=== PATIENT | female | born 1990 | race Caucasian/White ===

== ENCOUNTER 2019-05-01 17:52 | Emergency (ER) | payer MEDICAID, SELFPAY ==
[2019-05-01 17:53] VITALS: BP 134/69; PULSE 78; RESP 16; TEMP 36.6; O2SAT 99; BMI 25.0
--- NOTE | 2019-05-01 18:34 | ED.DCSUM_ITS ---
History of Present Illness Chief Complaint: Suicidal Detail of Chief Complaint: SI, overdose Informant: Patient Onset: Today 729 Context: Sudden Onset Timing: Continuous - sleepy Current Severity: Gone Maximum Severity: Severe Worsened by: Situational factors Associated Symptoms: Depressed, Decreased Interest, Guilt, Decreased Concentration, Hopelessness, Suicidal Thoughts Specific plan (suicidal thought): overdosed Narrative: Patient intentionally overdosed this morning on approximately 24 Benadryl tablets and anywhere from 15-20 tablets of an jrge-aat-xesmeup sleep aid. She does not know what that latter pill is. She states her goal was to kill herself. She became very upset when she woke up. A friend brought her in because she discovered all of this, as she was groggy and stumbling down the stairs, the friend states she wants help but she will not admit it. The patient has been homeless and her friend has been helping her. She takes no medications. 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 Physically, she feels fine just a little tired right now. Friend states she is not confused and seems otherwise at her baseline self physically, in addition to being oriented as usual. Recent Illness/Hospitalization: No Past Medical History - Allergies and Home Meds Allergies/Adverse Reactions: Allergies No Known Allergies Allergy (Verified 05/01/19 17:55) Primary Care Physician: Care Physician,No Primary [Primary Care Provider] - Past Medical History: None Lives: Homeless Smoking Status: Current every day smoker Drugs: - - Methamphetamine, last used 3 days ago Review of Systems General: Reports: Malaise. Denies: Chills, Fever, Sweats Eyes: Denies: Visual changes - bilaterally, Diplopia ENT: Denies: Rhinorrhea, Sore throat Cardiovascular: Denies: Chest pain, Palpitations Respiratory: Denies: Dyspnea, Cough, Dyspnea on exertion Gastrointestinal: Denies: Abdominal pain, Nausea, Vomiting, Diarrhea, Melena, Hematochezia Genitourinary: Denies: Dysuria, Hematuria, Frequency Musculoskeletal: Denies: Back pain, Extremity Pain Skin: Denies: Rash, Wounds Neurological: Denies: Headache, Weakness, Numbness Psych: Reports: Depression, Suicidal thoughts, Suicidal ideations Physical Exam Vital Signs/Narrative: Vital Signs Temp Pulse Resp BP Pulse Ox 05/01/19 17:53 97.8 F 78 16 134/69 H 99 Inital Vital Signs reviewed: Yes General: Well nourished, Well developed Head: Normocephalic, Atraumatic Eyes: Perrl, EOMI ENT: Moist mucous membranes, No rhinorrhea Neck: Supple, Nontender Cardiovascular: Regular rate, Regular rhythm, No murmurs. Negative for: Tachycardia Respiratory: No distress, CTA bilaterally, Chest nontender Abdomen: Soft, Nontender, Nondistended, Normal bowel sounds Back: Nontender, Normal Inspection Extremities: Nontender, No Edema Skin: Normal color, No rash, - - Warm, dry Neurological: Alert, Oriented x3, Cranial nerves II-XII grossly intact, Normal Strength, Normal Sensation Psych: Logical sequential goal directed thoughts, Good Insight, Poverty of Speech - But cooperative, Suicidal thoughts, Poor Judgement. Negative for: Homicidal thoughts, Hallucinations, Delusions Diagnostic/Tx/Re-eval Laboratory Results 05/01/19 05/01/19 05/01/19 18:43 18:43 18:43 WBC 7.1 RBC 5.47 H Hgb 14.6 Hct 46.1 MCV 84.3 MCH 26.7 L MCHC 31.7 L RDW Std Deviation 44.2 H RDW Coeff of Dayanara 14.5 Plt Count 261 MPV 10.5 Immature Gran % (Auto) 0.300 Neut % (Auto) 62.3 Lymph % (Auto) 21.4 [place] % (Auto) 6.6 Eos % (Auto) 8.7 H Baso % (Auto) 0.7 Absolute Neuts (auto) 4.4 Absolute Lymphs (auto) 1.52 Nucleated RBC % 0 Sodium 141 Potassium 4.0 Chloride 111 H Carbon Dioxide 24.0 Anion Gap 6 BUN 9 Creatinine 0.89 Estim Creat Clear Calc 89.88 Est GFR (MDRD) Af Amer 95 Est GFR (MDRD) Non-Af 79 BUN/Creatinine Ratio 10.1 Glucose 78 Calcium 8.9 Total Bilirubin 0.40 AST 25 ALT 30 Alkaline Phosphatase 70 Total Protein 7.6 Albumin 4.1 Globulin 3.5 Albumin/Globulin Ratio 1.2 Serum , Qual Salicylates 2.7 L Urine Opiates Screen Urine Methadone Screen Acetaminophen < 2.0 L Ur Barbiturates Screen Ur Phencyclidine Scrn Ur Amphetamines Screen U Methamphetamin-MDMA U Benzodiazepines Scrn Urine Cocaine Screen U Cannabinoids Screen Ur Drug Screen Comment Ethyl Alcohol < 3.0 05/01/19 05/01/19 18:43 18:43 WBC RBC Hgb Hct MCV MCH MCHC RDW Std Deviation RDW Coeff of Dayanara Plt Count MPV Immature Gran % (Auto) Neut % (Auto) Lymph % (Auto) [place] % (Auto) Eos % (Auto) Baso % (Auto) Absolute Neuts (auto) Absolute Lymphs (auto) Nucleated RBC % Sodium Potassium Chloride Carbon Dioxide Anion Gap BUN Creatinine Estim Creat Clear Calc Est GFR (MDRD) Af Amer Est GFR (MDRD) Non-Af BUN/Creatinine Ratio Glucose Calcium Total Bilirubin AST ALT Alkaline Phosphatase Total Protein Albumin Globulin Albumin/Globulin Ratio Serum , Qual NEGATIVE Salicylates Urine Opiates Screen NEGATIVE Urine Methadone Screen NEGATIVE Acetaminophen Ur Barbiturates Screen NEGATIVE Ur Phencyclidine Scrn NEGATIVE Ur Amphetamines Screen POSITIVE H U Methamphetamin-MDMA NEGATIVE U Benzodiazepines Scrn NEGATIVE Urine Cocaine Screen NEGATIVE U Cannabinoids Screen NEGATIVE Ur Drug Screen Comment Ethyl Alcohol Patient has been cooperative. Labs/work-up as above negative, including potential coingestants. She is now at least 12 hours postingestion. She is medically cleared. She does not have an anticholinergic toxidrome at this time and her vital signs are normal. Discussed with mental health for further evaluation and transfer to a psychiatric facility. ED Disposition - Plan for ED Patient: Disposition: Psychiatric Hospital or Unit Diagnosis: Major depression, Suicidal ideation, Intentional drug overdose, Suicide attempt
[2019-05-01 18:55] LABS: Absolute Lymphocyte Count 1.52 X10^3/uL (0.83-4.51); Absolute Neutrophil Count 4.4 X10^3/uL (2.0-7.7); Basophil# 0.05 X10^3/uL; Basophil% 0.7 % (0-1); Eosinophil# 0.62 X10^3/uL; Eosinophils% 8.7 % (0-5); Hematocrit 46.1 % (37-47); Hemoglobin 14.6 g/dL (12.0-15.0); Lymphocyte # 1.52 X10^3/ul (4.0); Lymphocyte % 21.4 % (19-41); Mean Corp Hgb Conc 31.7 g/dL (32-36); Mean Corpuscular Hgb 26.7 pg (27.0-32.0); Mean Corpuscular Volume 84.3 fL (81-99); Mean Platelet Vol. 10.5 fl (6.2-12.0); Monocyte# 0.47 X10^3/uL; Monocyte% 6.6 % (0-10); NRBC Flagged by Analyzer 0 % (0-5); Neutrophil # 4.43 X10^3/uL (2.7-7.7); Neutrophil % 62.3 % (47-70); Platelet Count 261 K/mm3 (150-450); RBC Distribution Width CV 14.5 % (11.6-14.6); RBC Distribution Width SD 44.2 fl (35.1-43.9); Red Blood Count 5.47 M/mm3 (4.2-5.4); White Blood Count 7.1 K/mm3 (4.4-11.0)
[2019-05-01 19:12] LABS: Internal QC Validated? YES +Cl - CLEAR BKGD; Pregnancy, Serum, hCG Quali. NEGATIVE Negative
[2019-05-01 19:15] LABS: ALB/GLOB Ratio 1.2 RATIO (0.9-2.4); AST(SGOT) 25 U/L (15-37); Alanine Aminotransfer ALT/SGPT 30 U/L (13-56); Albumin, Serum 4.1 g/dL (3.2-5.0); Alkaline Phosphatase 70 U/L (45-117); Anion Gap 6 (5-15); BUN 9 mg/dL (7-18); BUN/Creat Ratio 10.1 RATIO (10-20); Calcium,Total 8.9 mg/dL (8.5-10.1); Chloride 111 mmol/L (98-107); Creatinine, Serum 0.89 mg/dL (0.55-1.02); EST Glomerular Filtration Rate 79 mL/min (>60); Est Glom Filt Rate - Afr Amer 95 mL/min (>60); Estimated Creatinine Clearance 89.88 ml/min; Globulin 3.5 g/dL (2.2-4.2); Glucose 78 mg/dL (74-106); Protein, Total 7.6 g/dL (6.4-8.2); Sodium Level 141 mmol/L (136-145)
[2019-05-01 19:16] LABS: Amphetamine Urine VISTA POSITIVE (<1000 ng/mL); Barbiturate Urine VISTA NEGATIVE (< 200 ng/mL); Benzodiazepine Urine VISTA NEGATIVE (< 200 ng/mL); Cocaine Urine VISTA NEGATIVE (< 300 ng/mL); Ecstacy Urine VISTA NEGATIVE (< 500 ng/mL); Methadone Urine VISTA NEGATIVE (< 300 ng/mL); PCP Urine VISTA NEGATIVE (< 25 ng/mL); THC Urine VISTA NEGATIVE (< 50 ng/mL); Vista UDS pH Range 6
[2019-05-01 19:24] LABS: Acetaminophen (Tylenol) Level < 2.0 ug/mL (10.0-30.0); Alcohol, Blood (Medical)-Serum < 3.0 mg/dL; Salicylate 2.7 mg/dL (2.8-20.0)
[2019-05-01 19:32] VITALS: BP 109/85; PULSE 60; RESP 20; O2SAT 100
[2019-05-01 20:00] VITALS: BP 118/77; PULSE 59; RESP 19; O2SAT 100
[2019-05-01 21:00] VITALS: BP 114/71; PULSE 62; RESP 19; O2SAT 98
[2019-05-01 22:00] VITALS: BP 110/65; PULSE 54; RESP 16; O2SAT 100
--- NOTE | 2019-05-01 22:09 | ED.RN ---
CARINA WITH CRISIS RETURNED CALL I WILL BE IN WITHIN AN HOUR
[2019-05-01 23:15] VITALS: BP 118/66; PULSE 71; RESP 21; O2SAT 99
[2019-05-02] VITALS (8 sets, daily range): BP systolic 107–121; BP diastolic 59–68; PULSE 52–79; RESP 15–17; TEMP 36.6; O2SAT 96–98
== END 2019-05-02 08:06 ==
PROVIDERS: Emergency Provider Emergency Medicine
DX: T45.0X2A Poisoning by antiallergic and antiemetic drugs, intentional self-harm, initial encounter (principal); F32.9 Major depressive disorder, single episode, unspecified; Z59.0 Homelessness; F17.200 Nicotine dependence, unspecified, uncomplicated
CPT/HCPCS: 36415; 80053; 80307; 80320; 80329; 84703; 85025; 99284; G0480

== ENCOUNTER 2019-05-16 12:42 | Emergency (ER) | payer MEDICAID, SELFPAY ==
[2019-05-16 12:44] VITALS: BP 110/58; PULSE 84; RESP 16; TEMP 36.7; O2SAT 99; BMI 23.3
--- NOTE | 2019-05-16 13:46 | EKG12_ITS ---
Test Reason : CP Blood Pressure : / mmHG Vent. Rate : 082 BPM Atrial Rate : 082 BPM P-R Int : 116 ms QRS Dur : 088 ms QT Int : 380 ms P-R-T Axes : 058 060 044 degrees QTc Int : 443 ms Normal sinus rhythm Normal ECG Confirmed by ИВАН MANCUSO, BARB ([id number]), makeup editor HILARIA PRINCE ([id number]) on 05/18/2019 1:02:40 PM Referred By: LORI Confirmed By:BARB OATES MD
--- NOTE | 2019-05-16 13:50 | RAD_ITS ---
STUDY: X-RAY CHEST REASON FOR EXAM: Female, 28 years old. 2 week history of cough and cold-like symptoms. TECHNIQUE: Single AP portable view of the chest. COMPARISON: None. FINDINGS: Patchy bibasilar infiltrates worse on the left side. There is no demonstrated pleural abnormality. Normal size heart. Prominence of the left hilum. Normal visualized pulmonary arteries. Normal visualized aortic arch and descending thoracic aorta. Normal visualized thoracic spine. Normal visualized ribs, clavicles, and shoulders. There is no demonstrated abnormality of the visualized soft tissue structures of the upper abdomen. RAD/Chest 1 View (Portable) IMPRESSION: Patchy bibasilar infiltrates worse on the left side. Prominence of the left hilum. Radiographic follow-up is recommended. Electronically Signed: Paul Singleton, at 14:01 EST , Service support ,
[2019-05-16] MEDS: 0.9% Normal Saline 1,000 ML 1000 ML IV (14:26)
[2019-05-16] MEDS: Ketorolac 30 MG/ML Syringe IV (14:26)
[2019-05-16 14:29] LABS: Absolute Lymphocyte Count 1.28 X10^3/uL (0.83-4.51); Absolute Neutrophil Count 4.3 X10^3/uL (2.0-7.7); Basophil# 0.02 X10^3/uL; Basophil% 0.3 % (0-1); Eosinophil# 0.55 X10^3/uL; Eosinophils% 8.3 % (0-5); Hematocrit 32.4 % (37-47); Hemoglobin 10.8 g/dL (12.0-15.0); Lymphocyte # 1.28 X10^3/ul (4.0); Lymphocyte % 19.4 % (19-41); Mean Corp Hgb Conc 33.3 g/dL (32-36); Mean Corpuscular Volume 83.9 fL (81-99); Mean Platelet Vol. 9.1 fl (6.2-12.0); Monocyte# 0.48 X10^3/uL; Monocyte% 7.3 % (0-10); NRBC Flagged by Analyzer 0 % (0-5); Neutrophil # 4.25 X10^3/uL (2.7-7.7); Neutrophil % 64.4 % (47-70); Platelet Count 308 K/mm3 (150-450); RBC Distribution Width CV 14.9 % (11.6-14.6); RBC Distribution Width SD 43.3 fl (35.1-43.9); Red Blood Count 3.86 M/mm3 (4.2-5.4); White Blood Count 6.6 K/mm3 (4.4-11.0)
[2019-05-16 14:46] LABS: Anion Gap 7 (5-15); BUN 8 mg/dL (7-18); BUN/Creat Ratio 9.7 RATIO (10-20); Calcium,Total 8.6 mg/dL (8.5-10.1); Chloride 109 mmol/L (98-107); Creatinine, Serum 0.83 mg/dL (0.55-1.02); EST Glomerular Filtration Rate 86 mL/min (>60); Est Glom Filt Rate - Afr Amer 104 mL/min (>60); Estimated Creatinine Clearance 96.38 ml/min; Glucose 96 mg/dL (74-106); Potassium 3.5 mmol/L (3.5-5.1); Sodium Level 143 mmol/L (136-145)
[2019-05-16 14:54] LABS: Internal QC Validated? YES +Cl - CLEAR BKGD; Pregnancy, Serum, hCG Quali. NEGATIVE Negative
[2019-05-16 14:59] LABS: D-Dimer Quantitative (DVT/PE) 0.78 FEU/ug/m (0.27-0.49)
--- NOTE | 2019-05-16 15:01 | ED.RN ---
ddimer 0.[address] called from the lab. dr leon aware
--- NOTE | 2019-05-16 15:13 | CT_ITS ---
STUDY: CTA CHEST REASON FOR EXAM: Female, 28 years old. Elevated d-dimer. Cough and cold-like symptoms. RADIATION DOSAGE (If Supplied By Facility): CTDIvol = ( 10.09 ) mGy, DLP = ( 282.71 ) mGycm TECHNIQUE: The examination was performed with the intravenous administration of IV Isovue 370 75mL. Post-processing of the angiographic images was performed, with multiplanar reformation and 3D reconstruction. Individualized dose optimization techniques were used for this CT. COMPARISON: Comparison is made with prior chest radiograph done earlier today. FINDINGS: Normal enhancement of the main pulmonary artery and right and left pulmonary arteries. Normal enhancement of the bilateral peripheral pulmonary arteries. There is no demonstrated pulmonary embolism. Normal thoracic aorta and visualized great vessels. There is no demonstrated aortic dissection. Normal heart and pericardium. Normal mediastinum. Mildly enlarged bilateral hilar lymph nodes. Normal visualized trachea and bronchi. The lungs are well expanded. Patchy bibasilar infiltrates worse on the left side. Normal pleura. Normal chest wall structures. Normal osseous structures. Normal visualized upper abdomen. CT/CTA Chest W/WO Contrast IMPRESSION: Bilateral patchy basilar infiltrates worse on the left side. Mildly enlarged bilateral hilar lymph nodes. Electronically Signed: Paul Singleton, at 15:39 EST , Service support ,
--- NOTE | 2019-05-16 16:47 | ED.DEP ---
ED Disposition - Plan for ED Patient: Instructions: PNEUMONIA (Adult) Prescriptions: Doxycycline 100 mg PO BID #20 capsule Naproxen [Naprosyn] 500 mg PO BID PRN #20 tablet Referrals: Ozzy Ortiz DO [NON CLINICAL AFFILIATE] -
--- NOTE | 2019-05-16 16:56 | ED.VISSUMM ---
- ER Visit Summary Date of Service: 05/16/19 Chief Complaint: Cough History of Present Illness: The patient is a 28 F presenting with cough x2 weeks. She states that this has been mostly a dry cough occasionally productive of sputum. She has had subjective fever at home. She complains of rhinorrhea. She has chest pain when she coughs and takes deep breaths. Denies sick contacts. She has tried Robitussin at home. Denies PE/DVT risk factors. Denies other complaints. She is a smoker. Physical Examination: Vitals are stable. Patient is afebrile. Pulse ox 99% on room air. Alert no acute distress. HEENT exam is unremarkable. Neck is supple. Lungs are mild rhonchi bases bilaterally. Chest wall tenderness to palpation diffusely with no crepitus Heart is regular rate and rhythm. Abdomen is soft nontender nondistended. No guarding or rebound Extremities are unremarkable. Skin is warm and dry. No focal neurologic deficit. Remainder of exam is unremarkable. Emergency Department Course and Treatment: Chest x-ray shows patchy bilateral infiltrates. EKG is sinus rate of 82 with no acute ischemic changes. CBC normal except hemoglobin 10.8. Chemistries unremarkable. Troponin is negative. D-dimer elevated 0.78. hCG negative. Due to elevated d-dimer, CTA chest was obtained and shows bilateral patchy basilar infiltrates worse on the left side. Mildly enlarged bilateral hilar lymph nodes. Patient was given IV fluids, Toradol. She was given doxycycline. On reevaluation she is resting comfortably. Her oxygen sat is 94% on room air with ambulation. She will follow-up with Dr. Ortiz on-call for no doctor. She was given prescription for doxycycline and Naprosyn. Advised return to ED for worsening complaints. Disposition: Discharge home Impression: Pneumonia This note was generated with [employer] dictation software. It may contain incorrect words, spelling, and punctuation that were not noted in review of the chart prior to signing ED Disposition - Plan for ED Patient: Instructions: PNEUMONIA (Adult) Prescriptions: Doxycycline 100 mg PO BID #20 cap Transmission Status: Received by [facility] Naproxen [Naprosyn] 500 mg PO BID PRN #20 tab Transmission Status: Received by [facility] Referrals: Ozzy Ortiz DO [NON CLINICAL AFFILIATE] -
[2019-05-16 17:11] VITALS: BP 111/77; PULSE 83; RESP 12; O2SAT 94
== END 2019-05-16 17:12 | disposition home or self-care (01) ==
PROVIDERS: Emergency Provider Emergency Medicine
DX: J18.9 Pneumonia, unspecified organism (principal); Z72.0 Tobacco use
CPT/HCPCS: 71045; 71275; 80048; 84484; 84703; 85025; 85379; 87804; 93005; 96361; 96374; 99283; J7030; Q9967

== ENCOUNTER 2019-05-25 08:38 | Emergency (ER) | payer MEDICAID, SELFPAY ==
[2019-05-25 08:39] VITALS: BP 127/75; PULSE 85; RESP 17; TEMP 36.6; O2SAT 99; BMI 24.2
--- NOTE | 2019-05-25 08:51 | EKG12_ITS ---
Test Reason : SOB Blood Pressure : / mmHG Vent. Rate : 066 BPM Atrial Rate : 066 BPM P-R Int : 130 ms QRS Dur : 092 ms QT Int : 412 ms P-R-T Axes : 068 059 059 degrees QTc Int : 431 ms Normal sinus rhythm Normal ECG Confirmed by ROSALEE MANCUSO, RADHA ([id number]), telegraph editor HILARIA PRINCE ([id number]) on 06/01/2019 11:29:28 AM Referred By: ANASTACIA Confirmed By:LIZBETH TURK MD
--- NOTE | 2019-05-25 08:51 | RAD_ITS ---
STUDY: X-RAY CHEST REASON FOR EXAM: Female, 29 years old. Cough and shortness of breath. Right-sided rib pain. TECHNIQUE: Single AP portable view of the chest. COMPARISON: Comparison is made with prior examination dated May 16, 2019. FINDINGS: Residual patchy infiltrate in the left lower lobe. Mild increased markings at right lung base although there has been improvement as compared to prior study. Blunting of the left costophrenic angle. Normal size heart. Normal mediastinum and isabella. Normal visualized pulmonary arteries. Normal visualized aortic arch and descending thoracic aorta. Normal visualized thoracic spine. Normal visualized ribs, clavicles, and shoulders. There is no demonstrated abnormality of the visualized soft tissue structures of the upper abdomen. RAD/Chest 1 View (Portable) IMPRESSION: Residual bibasilar infiltrates left greater than right although there has been improvement as compared to prior study. Blunting of the left costophrenic angle. Electronically Signed: Paul Singleton, at 9:20 EST , Service support ,
--- NOTE | 2019-05-25 08:54 | ED.DCSUM_ITS ---
History of Present Illness Chief Complaint: Shortness of Breath Informant: Patient Onset: Days Current Severity: Mild Narrative: Complains of recent pneumonia increasing right-sided chest pain cough, lasted for antibiotics, Was seen in the emergency department with URI coughing type symptoms diagnosed with pneumonia started on antibiotics indicates she improved over the last 3 days she noticed increasing coughing increasing right-sided chest discomfort she presents for evaluation, declines fever no abdominal pain no diarrhea normal bowel bladder habits she does smoke she has no cardiopulmonary history no history UT PE DVT or pneumonia Past Medical History - Allergies and Home Meds Allergies/Adverse Reactions: Allergies No Known Allergies Allergy (Verified 05/25/19 08:39) Primary Care Physician: Care Physician,No Primary [Primary Care Provider] - Past Medical History: None Smoking Status: Current every day smoker Review of Systems General: Denies: Chills, Fever, Sweats Eyes: Denies: Visual changes - bilaterally, Diplopia ENT: Denies: Rhinorrhea, Sore throat Cardiovascular: Reports: Chest pain. Denies: Palpitations Respiratory: Reports: Cough. Denies: Dyspnea, Dyspnea on exertion Gastrointestinal: Denies: Abdominal pain, Nausea, Vomiting, Diarrhea, Melena, Hematochezia Genitourinary: Denies: Dysuria, Hematuria, Frequency Musculoskeletal: Denies: Back pain, Extremity Pain Skin: Denies: Rash, Wounds Neurological: Denies: Headache, Weakness, Numbness Physical Exam Vital Signs/Narrative: Vital Signs Temp Pulse Resp BP Pulse Ox 05/25/19 08:39 97.9 F 85 17 127/75 H 99 General: Well nourished, Well developed, No Acute Distress, - - Points to her right lower chest as area of pain worse when she moves or coughs Head: Normocephalic, Atraumatic Eyes: Perrl, EOMI ENT: Moist mucous membranes, No rhinorrhea Neck: Supple, Nontender Cardiovascular: Regular rate, Regular rhythm, No murmurs Respiratory: No distress, CTA bilaterally, Chest nontender Abdomen: Soft, Nontender, Nondistended, Normal bowel sounds Back: Nontender, Normal Inspection Extremities: Nontender, No edema Skin: Normal color, No rash Neurological: Alert, Oriented x3, Cranial nerves II-XII grossly intact, Normal Strength, Normal Sensation Psychological: Normal affect, Normal Mood Diagnostic/Tx/Re-eval - Medical Decision Making Her vitals are within normal range her pulse ox is within normal range, she has a dry cough here, given all of the above screening labs x-ray pain management Patient did have a CTA last visit that showed bibasilar infiltrates left more than right no PE no other abnormalities, the chest x-ray today shows improvement of these infiltrates again more on the left than the right, her white count labs are unremarkable she is feeling better after therapy, she has 1 more day left on the doxycycline prescription I explained to her the etiology of her pain remains unclear just could certainly be related to persistent residual pneumonia small effusion etc. there is no indication to redo a CTA given the risk of radiation contrast etc. she agrees She is not at risk for any specific type of pneumonia or pulmonary condition Spoke with Dr. Flores of pulmonary, as the patient has no follow-up physicians discussed the case with him he recommended switching her to Levaquin and he would be happy to try to work her in to be seen, reevaluation with patient she indicates she is feeling much better discussed all of the above with her she is comfortable with discharge home, she was given first dose of Levaquin here, 1 dose of Solu-Medrol IV, she will be started on Proventil inhaler Naprosyn for pain and return for change in symptoms and follow-up either with Dr. Ortiz or with Dr. Flores, she is understands the concept of pneumonia can be life- threatening and will return if symptoms change or intensified but again she feels much better wants to go home Home stable Impression, final , pneumonia ED Disposition - Plan for ED Patient: Diagnosis: pnuemonia Instructions: PNEUMONIA (Adult) Prescriptions: Levofloxacin [Levaquin] 750 mg PO DAILY #7 tab Prescription Printed Guaifenesin [Mucinex] 600 mg PO BID #20 tab.er.12h Prescription Printed Albuterol Inhaler [Ventolin Hfa] 1 - 2 puff INHALATION Q4H PRN PRN #1 inhaler PRN Reason: Wheezing Prescription Printed Referrals: Care Physician,No Primary [Primary Care Provider] - Jasper Flores MD [STAFF PHYSICIAN] - Ozzy Ortiz DO [NON CLINICAL AFFILIATE] -
[2019-05-25 09:17] LABS: Absolute Lymphocyte Count 1.78 X10^3/uL (0.83-4.51); Absolute Neutrophil Count 4.6 X10^3/uL (2.0-7.7); Basophil# 0.04 X10^3/uL; Basophil% 0.5 % (0-1); Eosinophil# 0.76 X10^3/uL; Eosinophils% 9.9 % (0-5); Hematocrit 35.4 % (37-47); Hemoglobin 11.6 g/dL (12.0-15.0); Lymphocyte # 1.78 X10^3/ul (4.0); Lymphocyte % 23.2 % (19-41); Mean Corp Hgb Conc 32.8 g/dL (32-36); Mean Corpuscular Volume 82.3 fL (81-99); Mean Platelet Vol. 8.9 fl (6.2-12.0); Monocyte# 0.45 X10^3/uL; Monocyte% 5.9 % (0-10); NRBC Flagged by Analyzer 0 % (0-5); Neutrophil % 60.1 % (47-70); Platelet Count 429 K/mm3 (150-450); RBC Distribution Width CV 15.5 % (11.6-14.6); RBC Distribution Width SD 44.3 fl (35.1-43.9); White Blood Count 7.7 K/mm3 (4.4-11.0)
[2019-05-25] MEDS: Ipratropium/Albuterol Sulfate 3 ML AMPUL.NEB INHALATION ×2 (09:19→11:51)
[2019-05-25 09:20] VITALS: PULSE 101; RESP 21; O2SAT 99
[2019-05-25 09:27] VITALS: BP 113/60; PULSE 76; PULSE 81; RESP 18; RESP 21; TEMP 36.6; O2SAT 97
[2019-05-25] MEDS: Ketorolac 30 MG/ML Syringe IV (09:30)
[2019-05-25] MEDS: Ondansetron 4 MG/2 ML Vial IV (09:31)
[2019-05-25] MEDS: Morphine 4 MG/ML Syringe IV (09:31)
[2019-05-25 09:35] LABS: Internal QC Validated? YES +Cl - CLEAR BKGD; Pregnancy, Serum, hCG Quali. NEGATIVE Negative
[2019-05-25] MEDS: 0.9% Normal Saline 1,000 ML 150 ML IV (09:38)
[2019-05-25 09:41] LABS: Anion Gap 6 (5-15); BUN 6 mg/dL (7-18); BUN/Creat Ratio 7.5 RATIO (10-20); Chloride 110 mmol/L (98-107); EST Glomerular Filtration Rate 89 mL/min (>60); Est Glom Filt Rate - Afr Amer 107 mL/min (>60); Estimated Creatinine Clearance 99.08 ml/min; Glucose 80 mg/dL (74-106); Potassium 3.8 mmol/L (3.5-5.1); Sodium Level 143 mmol/L (136-145)
[2019-05-25] MEDS: MethylPREDNISolone 125 MG/2 ML Vial IV (10:43)
[2019-05-25 11:52] VITALS: PULSE 96; RESP 26; O2SAT 96
[2019-05-25] MEDS: levoFLOXacin 750 MG Tablet PO (12:09)
[2019-05-25 12:13] VITALS: BP 107/65; PULSE 97; RESP 18; O2SAT 96
== END 2019-05-25 12:14 | disposition home or self-care (01) ==
LOC: ED 09:21
PROVIDERS: Emergency Provider Emergency Medicine
DX: J18.9 Pneumonia, unspecified organism (principal); F17.200 Nicotine dependence, unspecified, uncomplicated
CPT/HCPCS: 71045; 80048; 84484; 84703; 85025; 93005; 94640; 96361; 96374; 96375; 99251; 99285; J7030; A4216; G0463; J2405

== ENCOUNTER 2019-06-11 10:30 | Emergency (ER) | payer MEDICAID, SELFPAY ==
[2019-06-11 10:31] VITALS: BP 112/65; PULSE 81; RESP 18; TEMP 36.6; O2SAT 100; BMI 21.9
--- NOTE | 2019-06-11 10:46 | RAD_ITS ---
STUDY: X-RAY - UNILATERAL RIBS ( RIGHT ) WITH CHEST REASON FOR EXAM: Female, 29 years old. patient had episodes of coughing last week and felt a and quot;pop and quot; from anterior right side behind breast TECHNIQUE - RIBS: 4 view(s) of the ribs. TECHNIQUE - CHEST: Single PA view of the chest. COMPARISON: Chest x-ray dated May 25, 2019 FINDINGS - RIBS: Normal visualized ribs without a demonstrated fracture. No pneumothorax or pleural effusion. FINDINGS - CHEST: The lungs are clear and expanded. There is no demonstrated pleural abnormality. Normal size heart. Normal mediastinum and isabella. Normal visualized pulmonary arteries. Normal visualized aortic arch and descending thoracic aorta. Normal visualized thoracic spine. Normal visualized ribs, clavicles, and shoulders. There is no demonstrated abnormality of the visualized soft tissue structures of the upper abdomen. RAD/Ribs Uni Min 3V w/PA Chest IMPRESSION: RIBS: Normal x-ray examination of the ribs. CHEST: Normal x-ray examination of the chest. Electronically Signed: Braulio Aguirre MD at 12:10 EST , Service support ,
--- NOTE | 2019-06-11 11:06 | ED.VIS.GEN ---
History of Present Illness Chief Complaint: Chest Other Informant: Patient Onset: Weeks Context: Sudden Onset Timing: Continuous Quality: Pain Location: Right rib 6, 7 8 anterior axillary line to posterior axillary line Current Severity: Mild Maximum Severity: Severe Worsened by: Movement and breathing Relieved by: Nothing Associated Symptoms: Clicking with deep breathing Narrative: Patient has been seen twice this month. She had a chest x-ray and CAT scan first visit which revealed by lateral lower lobe pneumonia without evidence of rib fracture. Chest x-ray obtained during the second visit revealed improvement of her pneumonia. There was no evidence of pneumothorax or fractured ribs. She denies fever, chills night sweats. She denies rhinorrhea, postnasal drainage or congestion. She does report nonproductive cough. She denies trauma. She denies GI symptoms. She denies leg pain, swelling discoloration. Prior similar symptoms: Yes Recent Illness/Hospitalization: Yes - Past Medical History (1) Pneumonia of both lower lobes Status: Acute Past Medical History - Allergies and Home Meds Allergies/Adverse Reactions: Allergies No Known Allergies Allergy (Verified 06/11/19 10:32) Primary Care Physician: Care Physician,No Primary [Primary Care Provider] - Prior records reviewed: Yes - Bilateral lower lobe pneumonia Surgical History: noncontributory Lives: Spouse/ Significant Other Smoking Status: Current every day smoker Alcohol: Rare Drugs: None Review of Systems General: Denies: Chills, Fever, Sweats ENT: Denies: Bilateral ear pain, Rhinorrhea, Sore throat Cardiovascular: Reports: Chest pain. Denies: Palpitations, Heart racing Respiratory: Reports: Cough. Denies: Dyspnea, Sputum, Dyspnea on exertion, Orthopnea, Paroxysmal nocturnal dyspnea Gastrointestinal: Denies: Abdominal pain, Nausea, Vomiting, Diarrhea, Melena, Hematochezia Musculoskeletal: Denies: Myalgias, Arthralgias, Neck pain, Back pain, Swelling, Extremity Pain, -, - Skin: Denies: Rash, Wounds Hematologic: Denies: Easy bruising, Easy bleeding Allergy: Denies: Uticaria, Swelling of the mouth, Swelling of the tongue Physical Exam Vital Signs/Narrative: Vital Signs Temp Pulse Resp BP Pulse Ox 06/11/19 10:31 97.8 F 81 18 112/65 100 Inital Vital Signs reviewed: Yes General: Well nourished, Well developed, No Acute Distress Head: Normocephalic, Atraumatic Eyes: Perrl, EOMI ENT: Moist mucous membranes, No rhinorrhea Neck: Supple, Nontender Cardiovascular: Regular rate, Regular rhythm, No murmurs, Normal S1, Normal S2 Respiratory: No distress, CTA bilaterally, Chest tenderness - Chest tenderness over the right, sixth and eighth rib. There is no crepitus, subcutaneous air or clicking appreciated.. Negative for: Rales, Rhonchi, Wheezing, Diminished, Decreased Air Movement Abdomen: Soft, Nontender, Nondistended, Normal bowel sounds. Negative for: Hepatomegaly, Splenomegaly, Mass Back: Nontender, Normal Inspection Extremities: Nontender, No edema, - - Is no asymmetry, swelling discoloration of the lower extremities. There is no palpable cord, leg vein distention or tenderness along the distribution of the deep venous system. Skin: Normal color, No rash, No Trauma. Negative for: Cyanosis, Diaphoresis, Jaundice Neurological: Alert, Oriented x3, Cranial nerves II-XII grossly intact, Normal Strength, Normal Sensation Psychological: Normal affect, Normal Mood Diagnostic/Tx/Re-eval Chest X-Ray - ED: 2 View, Normal, Heart, Lungs, Mediastinum, Bony Structures, No Acute Disease, - - Infiltrates have resolved. No evidence of acute or healing fractures. Since there is a pleuritic component will treat with NSAIDs. 06/11/19 10:46 Xray Ribs [Ribs Uni Min 3V w/PA Chest] [RAD] Stat - Medical Decision Making Chest x-ray was obtained to assess pneumonia and determine if there is an effusion. Also to rule out pneumothorax and to determine if there is healing rib fractures. Chest x-ray and rib details are negative. Will treat with NSAIDs. ED Disposition - Plan for ED Patient: Disposition: Home or Assisted Living Diagnosis: Right-sided chest pain, Pleurisy without effusion Instructions: Pleurisy Prescriptions: Naproxen [Naprosyn] 500 mg PO BID #10 tab Prescription Printed Referrals: Care Physician,No Primary [Primary Care Provider] - Ozzy Ortiz DO [NON CLINICAL AFFILIATE] - 3-5 Days if not improving
[2019-06-11] MEDS: Naproxen 250 MG Tablet 500 MG PO (11:46)
[2019-06-11 11:48] VITALS: PULSE 57; RESP 16; O2SAT 100
== END 2019-06-11 11:50 | disposition home or self-care (01) ==
PROVIDERS: Emergency Provider Emergency Medicine
DX: R09.1 Pleurisy (principal); R07.89 Other chest pain; R05 Cough; F17.200 Nicotine dependence, unspecified, uncomplicated; Z79.899 Other long term (current) drug therapy; Z87.01 Personal history of pneumonia (recurrent)
CPT/HCPCS: 71101; 99283

== ENCOUNTER 2019-07-18 18:45 | Emergency (ER) | payer MEDICAID, SELFPAY ==
[2019-07-18 18:46] VITALS: BP 120/67; PULSE 96; RESP 20; TEMP 37; O2SAT 100; BMI 24.0
--- NOTE | 2019-07-18 19:33 | CT_ITS ---
STUDY: CT ABDOMEN AND PELVIS WITHOUT CONTRAST REASON FOR EXAM: Female, 29 years old. PILONIDAL ABSCESS. Rt buttock and rt flank redness. hot to touch. Additional images included st larger FOV RADIATION DOSAGE (If Supplied By Facility): CTDIvol = ( 6.72 ) mGy, DLP = ( 369.15 ) mGycm TECHNIQUE: Transaxial images were obtained from the dome of the diaphragm to the symphysis pubis without oral contrast, and without intravenous contrast. Sagittal and coronal images were reconstructed. Individualized dose optimization techniques were used for this CT. COMPARISON: None. FINDINGS: The visualized lung bases are unremarkable. The visualized portions of the heart are within normal limits. Normal liver. Normal gallbladder and extrahepatic biliary system. Normal spleen. Normal pancreas. Normal bilateral adrenal glands. Normal right kidney. Normal left kidney. Normal visualized stomach. Normal small intestine. Normal colon. The appendix is visualized and appears normal. Normal abdominal aorta. Normal inferior vena cava. Normal retroperitoneum. Normal urinary bladder. Normal visualized uterus. In the subcutaneous tissues overlying the right flank/buttock region, there is inflammation and edema without discrete abscess. Normal osseous structures. CT/Abdomen/Pelvis without Cont IMPRESSION: Subcutaneous tissue swelling, edema and inflammation in the region of the right flank/buttock''s. No discrete abscess. Remainder is within normal limits Electronically Signed: Clay Baird DO at 21:16 EST Tel , Service support ,
[2019-07-18 19:57] LABS: Absolute Lymphocyte Count 1.09 X10^3/uL (0.83-4.51); Absolute Neutrophil Count 5.3 X10^3/uL (2.0-7.7); Basophil# 0.04 X10^3/uL; Basophil% 0.5 % (0-1); Eosinophil# 0.22 X10^3/uL; Eosinophils% 2.9 % (0-5); Hematocrit 33.9 % (37-47); Hemoglobin 11.2 g/dL (12.0-15.0); Lymphocyte # 1.09 X10^3/ul (4.0); Lymphocyte % 14.5 % (19-41); Mean Corpuscular Hgb 27.4 pg (27.0-32.0); Mean Corpuscular Volume 82.9 fL (81-99); Mean Platelet Vol. 9.3 fl (6.2-12.0); Monocyte# 0.81 X10^3/uL; Monocyte% 10.8 % (0-10); NRBC Flagged by Analyzer 0 % (0-5); Neutrophil # 5.32 X10^3/uL (2.7-7.7); Neutrophil % 70.9 % (47-70); POSITIVE MORPHOLOGY YES; Platelet Count 276 K/mm3 (150-450); RBC Distribution Width CV 15.6 % (11.6-14.6); RBC Distribution Width SD 47.8 fl (35.1-43.9); Red Blood Count 4.09 M/mm3 (4.2-5.4); White Blood Count 7.5 K/mm3 (4.4-11.0)
[2019-07-18 20:02] VITALS: TEMP 38.1
[2019-07-18 20:02] LABS: Differential Indicated SCAN CRITERIA MET
[2019-07-18 20:10] LABS: International Normalized Ratio 1.2; Prothrombin Time (Protime)PT. 14.8 SECONDS (11.7-14.9)
[2019-07-18 20:11] LABS: Partial Thromboplast Time 43.6 Seconds (24.1-36.2)
[2019-07-18] MEDS: 0.9% Normal Saline 1,000 ML 999 ML IV ×2 (20:11→21:11)
[2019-07-18] MEDS: Morphine 4 MG/ML Syringe IV (20:11)
[2019-07-18 20:12] LABS: ALB/GLOB Ratio 0.7 RATIO (0.9-2.4); AST(SGOT) 34 U/L (15-37); Alanine Aminotransfer ALT/SGPT 56 U/L (13-56); Albumin, Serum 2.5 g/dL (3.2-5.0); Alkaline Phosphatase 111 U/L (45-117); Anion Gap 6 (5-15); BUN 10 mg/dL (7-18); BUN/Creat Ratio 12.9 RATIO (10-20); Calcium,Total 8.6 mg/dL (8.5-10.1); Chloride 106 mmol/L (98-107); Creatinine, Serum 0.78 mg/dL (0.55-1.02); EST Glomerular Filtration Rate 92 mL/min (>60); Est Glom Filt Rate - Afr Amer 111 mL/min (>60); Estimated Creatinine Clearance 101.62 ml/min; Globulin 3.8 g/dL (2.2-4.2); Glucose 82 mg/dL (74-106); Potassium 3.6 mmol/L (3.5-5.1); Protein, Total 6.3 g/dL (6.4-8.2); Sodium Level 137 mmol/L (136-145)
[2019-07-18] MEDS: Ondansetron 4 MG/2 ML Vial IV (20:12)
[2019-07-18 20:13] VITALS: BP 110/61; PULSE 90; RESP 20; TEMP 38.1; O2SAT 100
[2019-07-18 20:27] LABS: Lactic Acid 2.1 mmol/L (0.4-1.9)
--- NOTE | 2019-07-18 20:30 | RAD_ITS ---
STUDY: X-RAY CHEST REASON FOR EXAM: Female, 29 years old. WOUND TO LEFT SHOULDER AND LOWER BACK. HOT TO TOUCH TECHNIQUE: PA and lateral COMPARISON: None. FINDINGS: The lungs are clear and expanded. There is no demonstrated pleural abnormality. Normal size heart. Normal mediastinum and isabella. Normal visualized pulmonary arteries. Normal visualized aortic arch and descending thoracic aorta. Normal visualized thoracic spine. Normal visualized ribs, clavicles, and shoulders. There is no demonstrated abnormality of the visualized soft tissue structures of the upper abdomen. RAD/Chest PA and Lateral IMPRESSION: Normal x-ray examination of the chest. Electronically Signed: Eulogio Martel MD at 20:57 EST , Service support ,
[2019-07-18 20:33] LABS: Differential Comment SCANNED
[2019-07-18 20:57] LABS: Mucous, Urine 0 SEEN /hpf (<or=2+); Red Blood Cells-Urine 0 SEEN /hpf (0-5); Squamous Epithelial Cells - UA 0 SEEN /hpf (5-10); White Blood Cells 0 SEEN /hpf (0-5)
[2019-07-18 21:00] LABS: Color, Urine Yellow (Yellow); Glucose, Dipstick Normal (Normal); Ketone-Dipstick 15 mg/dl (Negative); Leukocyte Esterase-Dipstick Negative /ul (Negative); Nitrite-Dipstick Negative (Negative); Occult Blood-Urine Negative /ul (Negative); Protein-Dipstick Negative (Negative); Urine Bilirubin Dipstick Negative (Negative); Urine Clarity Clear (Clear); Urine Urobilinogen Normal (Normal); Urine pH 6.5 (5.0 - 8.0)
[2019-07-18 21:08] LABS: Bacteria RARE /hpf (None Seen)
[2019-07-18 21:11] LABS: Internal QC Validated? YES +Cl - CLEAR BKGD; Pregnancy, Serum, hCG Quali. NEGATIVE Negative
[2019-07-18 21:37] VITALS: BP 105/56; PULSE 93; RESP 14; TEMP 37.5; O2SAT 100
[2019-07-18] MEDS: Vancomycin IV 1,000 MG/200 ML BAG 200 MG IV (21:44)
[2019-07-18 22:01] VITALS: BP 114/59; PULSE 89; RESP 17; TEMP 37.5; O2SAT 100
--- NOTE | 2019-07-18 22:32 | ED.DCSUM_ITS ---
- ER Visit Summary Date of Service: 07/18/19 Chief Complaint: Abscess History of Present Illness: The patient is a 29 F with no primary care physician. She reports that she has an abscess to her lower back and left shoulder that began approximate 1 week ago. She states she has a throbbing pain is 10 on 10 severity. Increased with movement. Is decreased with rest Tylenol. She has had subjective fever and chills. She reports she is been nauseated and vomited twice yesterday. She has not vomited today. No blood in her emesis. Physical Examination: Vitals: Stable. Afebrile. General: Well-nourished and well-developed. Head: Normocephalic atraumatic. Neck: Supple, no lymphadenopathy. No JVD. Nontender. Cardiovascular: Regular rate and rhythm. No murmurs. Respiratory: No respiratory distress. Clear to auscultation bilaterally. Abdominal: Soft, nontender, nondistended, normal bowel sounds. No guarding, rebound, or peritoneal signs. Back: Nontender. Extremities: Nontender, no edema. Skin: Erythema in the pilonidal region. There is fluctuance with purulent drainage spontaneously. I do not appreciate any induration. There is a 2 mm hole with blood draining that is approximately 4 cm to the right of this. She also has an approximately 3 cm in diameter area of erythema and induration with moderate tenderness palpation to just above the left scapular spine. There is no fluctuance here.. Neurologic: Alert and oriented ?3. Cranial nerves II through XII are intact. Normal strength and sensation. Psych: Normal affect. Test Results: CBC shows an H&H 11.2 33.9, segmented for 71, lymphs at 15, monocytes of 11. Chem-7 is normal. Lactic acid is 2.1. LFTs marked for total protein of 6.3 and albumin of 2.5. Coags are normal. UA is negative. Clinical Impression(s) from Imaging Studies Abdomen/Pelvis CT 07/18/19 19:33 IMPRESSION: Subcutaneous tissue swelling, edema and inflammation in the region of the right flank/buttock''s. No discrete abscess. Remainder is within normal limits Electronically Signed: Clay Baird DO at 21:16 EST Tel , Service support , Chest X-Ray 07/18/19 20:30 IMPRESSION: Normal x-ray examination of the chest. Electronically Signed: Eulogio Martel MD at 20:57 EST , Service support , Emergency Department Course and Treatment: Patient was given Zosyn and vancomycin IV. She was given morphine and Zofran IV. She is resting more comfortably. At this time there is nothing that is amenable to drainage in the lower back. There is no fluctuance over her scapula that I think are to be amenable to drainage either. Treatment Plan: Patient will be discharged with doxycycline. Instructed to follow-up with Dr. Pandey in 2 days for a wound check. She does understand that if this not improving that she may require an incision and drainage. Return to the emergency department for any worsening symptoms. Disposition: To home in improved and stable condition. Impression: 1. Abscess, right buttock. 2. Abscess left shoulder. This note was generated with [employer] dictation software. It may contain incorrect words, spelling, and punctuation that were not noted in review of the chart prio r to signing ED Disposition - Plan for ED Patient: Disposition: Home or Assisted Living Instructions: ABSCESS, Antiobiotic Treatment Only Prescriptions: Doxycycline 100 mg PO BID #20 cap Prescription Printed Naproxen [Naprosyn] 500 mg PO BID #14 tab Prescription Printed Hydrocodone Bitart/Apap 5-325 [Sprakers 5MG-325MG] 1 tab PO Q4H PRN PRN 2 Days #10 tab PRN Reason: Pain Prescription Printed Referrals: El Pandey MD [STAFF PHYSICIAN] - 2 Days for wound check
[2019-07-18 22:57] VITALS: BP 103/55; PULSE 91; RESP 14; O2SAT 98
[2019-07-18 23:49] LABS: Reflex Lactate? Y
== END 2019-07-18 23:07 | disposition home or self-care (01) ==
LOC: ED 19:31
PROVIDERS: Emergency Provider Emergency Medicine
DX: L02.31 Cutaneous abscess of buttock (principal); L02.414 Cutaneous abscess of left upper limb; Z72.0 Tobacco use
CPT/HCPCS: 36415; 71046; 74176; 80053; 81001; 83605; 84703; 85025; 85610; 85730; 87040; 87077; 87086; 87088; 87186; 96361; 96365; 96367; 96375; 99285; J7030; J7040; A4216; J2405